=== PATIENT | female | born 1950 | race Caucasian/White ===

== ENCOUNTER 2017-04-11 12:23 | Inpatient (IN) | payer MEDICARE, OTHER ==
[2017-04-11] VITALS (15 sets, daily range): BP systolic 110–156; BP diastolic 54–75
[~2017-04-11] VITALS: Ht 154.9 cm; Wt 109.0 kg
[~2017-04-11 12:23] MED LIST: ALBUTEROL2.5 MG/31 IN; ALTACE10 M1 PO; ALTACE5 M1 PO; AMLODIPINE10 MG PO; AMOXICILLIN/CL875 MG OR; AUGMENTIN500TAB PO; AZITHROMYCIN250 MG PO; BENTYL10 MG PO; BENZONATATE200 MG PO; BOOSTRIX IM; CHERATUSSIN OR; CIPROFLOXACN500 MG PO; DULERA1 AE1 IN; DYMISTA1 SPR; HYDROCHLORO25 MG/TAB PO; KLOR-CON M1010 MEQ OR; LEVAQUIN500 MG PO; LORTAB 5/3255 MG PO; MEDDOSEPAK PO; METOPROLOL TART50 MG PO; METRONIDAZOL500 MG PO; MICRO-K10 ME1 PO; PHENERGAN12.5 MG/TA PO; PNEUMOVAX 23 IM; PRILOSEC40 MG PO; PROAIR HFA IN; PROTONIX40 MG PO; PYRIDIUM200 MG PO; QVAR80 MCG IN; ROBITUSSIN AC10 ML PO; ROCEPHIN 1 GM1 GM IM; SOLU-MEDROL125 MG PO; ZITHROMAX500 MG PO; ZPAK PO; nebulizer
[2017-04-11 12:56] LABS: HEMATOCRIT 42.2 % (37.0-47.0); HEMOGLOBIN 14.1 g/dl (12.0-16.0); IMMATURE GRANULOCYTES 0.3 % (0.0-1.0); MEAN CELL VOLUME 91.9 fL CALC (80.0-100.0); MEAN CORPUSCULAR HGB 30.7 pG CALC (26.0-32.0); MEAN CORPUSCULAR HGB CONC 33.4 g/L CALC (32.0-36.0); NEUT# 6.39 thou/uL (2.00-7.15); RED BLOOD COUNT 4.59 mill/uL (4.20-5.60); RED CELL DISTRI WIDTH 13.8 % (11.5-15.5)
[2017-04-11 13:17] LABS: ALBUMIN 4.7 g/dL (3.2-5.0); ALKALINE PHOSPHATASE 90 u/l (38-126); ANION GAP 16 (6-22 (CALC)); BILIRUBIN, TOTAL 0.5 mg/dL (0.0-1.4); BUN 11 mg/dL (8-23); BUN/CREATININE RATIO 11 (12-20 (CALC)); CALCIUM 9.3 mg/dL (8.4-10.2); CARBON DIOXIDE 23 mmol/l (22-30); CHLORIDE 110 mmol/l (95-108); GFR 55 ML/MIN (>=60 (CALC)); GFR FOR AFR.AMER. > 60 ML/MIN (>=60 (CALC)); GLUCOSE 149 mg/dL (82-115); POTASSIUM 3.7 mmol/l (3.5-5.1); SGOT/AST 32 u/l (9-36); SGPT/ALT 35 u/l (11-66); SODIUM 145 mmol/l (137-146); TOTAL PROTEIN 8.4 g/dL (6.3-8.2)
[2017-04-11 13:29] LABS: MYOGLOBIN 52 ng/mL (0 - 62)
[2017-04-11 14:17] LABS: CHOLESTEROL HDL RATIO 2.5 (<4.4 (CALC)); MAGNESIUM 2.1 mg/dL (1.6-2.3)
[2017-04-11 15:29] LABS: URINE BILIRUBIN - DIPSTICK NEGATIVE (NEGATIVE); URINE BLOOD DIPSTICK TRACE-INTACT (NEGATIVE); URINE COLOR YELLOW; URINE GLUCOSE - DIPSTICK NEGATIVE (NEGATIVE); URINE KETONE NEGATIVE (NEGATIVE); URINE LEUK ESTERASE NEGATIVE (NEGATIVE); URINE NITRITE - DIPSTICK NEGATIVE (Negative); URINE PROTEIN - DIPSTICK TRACE mg/dL (NEG-TRACE); URINE SPECIFIC GRAVITY 1.025; URINE UROBILINOGEN - DIPSTICK 0.2 E.U./dL (0.2)
[2017-04-11 15:32] LABS: URINE CLARITY CLEAR
[2017-04-11] MEDS ORDERED: SPIRIVA RE1.25 MCG/A IN (23:27)
[2017-04-11] MEDS ORDERED: ADVAIR DISK1 IN (23:41)
[2017-04-12] VITALS (9 sets, daily range): BP systolic 101–139; BP diastolic 57–69
[2017-04-12 06:29] LABS: HEMATOCRIT 38.9 % (37.0-47.0); HEMOGLOBIN 12.8 g/dl (12.0-16.0); IMMATURE GRANULOCYTES 0.3 % (0.0-1.0); MEAN CELL VOLUME 92.8 fL CALC (80.0-100.0); MEAN CORPUSCULAR HGB 30.5 pG CALC (26.0-32.0); MEAN CORPUSCULAR HGB CONC 32.9 g/L CALC (32.0-36.0); NEUT# 4.32 thou/uL (2.00-7.15); RED BLOOD COUNT 4.19 mill/uL (4.20-5.60)
[2017-04-12 06:38] LABS: ALBUMIN 4.1 g/dL (3.2-5.0); BILIRUBIN, TOTAL 0.8 mg/dL (0.0-1.4); CALCIUM 9.4 mg/dL (8.4-10.2); CREATININE 1.1 mg/dL (0.5-1.0); POTASSIUM 3.8 mmol/l (3.5-5.1); TOTAL PROTEIN 7.2 g/dL (6.3-8.2)
== END 2017-04-12 09:15 | disposition home or self-care (01) | DRG 313 ==
LOC: ED 12:23 → ED-I 13:30 → ED 13:42 → ICU 13:43
PROVIDERS: Emergency Medicine; Nurse Practitioner Family; ADMIT Internal Medicine Geriatric Medicine; ATTEND Internal Medicine Geriatric Medicine
DX: R07.9 Chest pain, unspecified (principal); I25.10 Atherosclerotic heart disease of native coronary artery without angina pectoris; E66.01 Morbid (severe) obesity due to excess calories; Z68.42 Body mass index [BMI] 45.0-49.9, adult; E11.9 Type 2 diabetes mellitus without complications; I10 Essential (primary) hypertension; J45.909 Unspecified asthma, uncomplicated; K21.9 Gastro-esophageal reflux disease without esophagitis; E03.9 Hypothyroidism, unspecified; K27.9 Peptic ulcer, site unspecified, unspecified as acute or chronic, without hemorrhage or perforation

== ENCOUNTER → 2018-07-03 | Outpatient (REF) | payer MEDICARE, OTHER ==
[~2018-07-03] MED LIST changes: +ADVAIR DISK1 IN; +SPIRIVA RE1.25 MCG/A IN
[2018-07-03 10:40] LABS: BILIRUBIN, TOTAL 0.5 mg/dL (0.0-1.4); CREATININE 2.9 mg/dL (0.5-1.0); POTASSIUM 3.6 mmol/l (3.5-5.1); TOTAL PROTEIN 6.9 g/dL (6.3-8.2)
== END | disposition home or self-care (01) ==
LOC: LAB 09:39
PROVIDERS: ATTEND Internal Medicine Geriatric Medicine
DX: I10 Essential (primary) hypertension (principal)

== ENCOUNTER 2019-04-19 07:57 | Emergency (ER) | payer MEDICARE, OTHER ==
[~2019-04-19] VITALS: Ht 152.4 cm; Wt 92.0 kg
[2019-04-19 08:29] LABS: HEMATOCRIT 34.8 % (37.0-47.0); HEMOGLOBIN 11.3 g/dl (12.0-16.0); IMMATURE GRANULOCYTES 0.7 % (0.0-5.0); MEAN CELL VOLUME 96.7 fL CALC (80.0-100.0); MEAN CORPUSCULAR HGB 31.4 pG CALC (26.0-32.0); MEAN CORPUSCULAR HGB CONC 32.5 g/L CALC (32.0-36.0); NEUT# 5.11 thou/uL (2.00-7.15); RED BLOOD COUNT 3.6 mill/uL (4.20-5.60); RED CELL DISTRI WIDTH 13.7 % (11.5-15.5)
[2019-04-19] MEDS ORDERED: ASPIRIN81 MG PO (08:39)
[2019-04-19] MEDS ORDERED: TOPROL XL PO (08:40)
[2019-04-19] MEDS ORDERED: MEVACOR10 MG PO (08:40)
[2019-04-19] MEDS ORDERED: VITAMIN D5000 UNI1 PO (08:41)
[2019-04-19 08:59] LABS: ANION GAP 14 (6-22 (CALC)); BUN 26 mg/dL (8-23); BUN/CREATININE RATIO 9 (12-20 (CALC)); CARBON DIOXIDE 18 mmol/l (22-30); CHLORIDE 113 mmol/l (95-108); CREATININE 2.9 mg/dL (0.5-1.0); GFR 16 ML/MIN (>=60 (CALC)); GFR FOR AFR.AMER. 19 ML/MIN (>=60 (CALC)); POTASSIUM 3.6 mmol/l (3.5-5.1); SODIUM 142 mmol/l (137-146)
[2019-04-19 09:21] LABS: URINE BILIRUBIN - DIPSTICK NEGATIVE (NEGATIVE); URINE BLOOD DIPSTICK TRACE-INTACT (NEGATIVE); URINE COLOR YELLOW; URINE GLUCOSE - DIPSTICK NEGATIVE (NEGATIVE); URINE KETONE NEGATIVE (NEGATIVE); URINE LEUK ESTERASE NEGATIVE (NEGATIVE); URINE NITRITE - DIPSTICK NEGATIVE (Negative); URINE PROTEIN - DIPSTICK Trace mg/dL (NEG-TRACE); URINE UROBILINOGEN - DIPSTICK 0.2 E.U./dL (0.2)
[2019-04-19 11:38] VITALS: BP 167/56
== END 2019-04-19 12:05 ==
LOC: ED 07:57
PROVIDERS: Family Medicine
PROC: 0T9B70Z Drainage of Bladder with Drainage Device, Via Natural or Artificial Opening (ICD-10-PCS; principal; 2019-04-19)
DX: S72.142A Displaced intertrochanteric fracture of left femur, initial encounter for closed fracture (principal); S51.811A Laceration without foreign body of right forearm, initial encounter; I10 Essential (primary) hypertension; W01.0XXA Fall on same level from slipping, tripping and stumbling without subsequent striking against object, initial encounter; Y92.009 Unspecified place in unspecified non-institutional (private) residence as the place of occurrence of the external cause

== ENCOUNTER 2024-06-11 13:42 | Emergency (ER) | payer MEDICARE, OTHER ==
[~2024-06-11] VITALS: Ht 152.4 cm; Wt 82.4 kg
[2024-06-11] VITALS (13 sets, daily range): BP systolic 140–216; BP diastolic 51–86
[~2024-06-11 13:42] MED LIST changes: +ASPIRIN81 MG PO; +MEVACOR10 MG PO; +TOPROL XL PO; +VITAMIN D5000 UNI1 PO
[2024-06-11] MEDS ORDERED: MORPHINE SULFATE 4 MG/ML VIAL IV ONE (14:30)
[2024-06-11] MEDS ORDERED: ONDANSETRON HCl 4 MG/2 ML SDV IV ONE (14:30)
[2024-06-11] MEDS ORDERED: SODIUM CHLORIDE 0.9% 1,000 ML IV ONE (14:30)
[2024-06-11 14:53] LABS: URINE BLOOD DIPSTICK Moderate (NEGATIVE); URINE GLUCOSE - DIPSTICK Negative (NEGATIVE); URINE KETONE Negative (NEGATIVE); URINE LEUK ESTERASE Negative (NEGATIVE); URINE NITRITE - DIPSTICK Negative (Negative); URINE PROTEIN - DIPSTICK >=300 mg/dL (NEG-TRACE); URINE SPECIFIC GRAVITY 1.025; URINE UROBILINOGEN - DIPSTICK 0.2 E.U./dL (0.2)
[2024-06-11 14:54] LABS: BASO% 0.2 % (0-3); EOS% 0.4 % (0-8); HEMATOCRIT 40.4 % (37.0-47.0); IMMATURE GRANULOCYTES 0.2 % (0.0-5.0); LYMPH% 13.5 % (15-41); MEAN CELL VOLUME 96.2 fL CALC (80.0-100.0); MEAN CORPUSCULAR HGB 32.4 pG CALC (26.0-32.0); MEAN CORPUSCULAR HGB CONC 33.7 g/dL CAL (32.0-36.0); MONO% 5.2 % (2-13); NEUT# 10.7 thou/uL (2.00-7.15); NEUT% 80.5 % (42-76); RED BLOOD COUNT 4.2 mill/uL (4.20-5.60)
[2024-06-11 14:55] LABS: URINE COLOR Yellow
[2024-06-11 14:55] LABS: HEMOGLOBIN 13.6 g/dl (12.0-16.0)
[2024-06-11 15:04] LABS: URINE WBC 0-2 WBC/hpf (0-5)
[2024-06-11 15:05] LABS: URINE SQUAMOUS EPITHELIAL CELL FEW EPI/hpf (0-FEW)
[2024-06-11 15:05] LABS: ALBUMIN 4.4 g/dL (3.2-5.0); POTASSIUM 3.4 mmol/l (3.5-5.1); TOTAL PROTEIN 7.8 g/dL (6.3-8.2)
[2024-06-11] MEDS ORDERED: hydrALAZINE HCL 20 MG/ML VIAL(1 ML) IV ONE (15:50)
[2024-06-11] MEDS ORDERED: ONDANSETRON4 MG PO (17:23)
== END 2024-06-11 17:51 | disposition home or self-care (01) ==
LOC: ED 13:42
PROVIDERS: Family Medicine
DX: K52.9 Noninfective gastroenteritis and colitis, unspecified (principal); I10 Essential (primary) hypertension
CPT/HCPCS: J0360; J2405; Q9967